=== PATIENT | male | born 1970 | race Two or more races ===

== ENCOUNTER 2023-07-21 13:47 | Outpatient (AMB) | payer MEDICAID, SELFPAY | END 2023-07-21 15:26 | disposition home or self-care (01) | LOC: HODAHC 13:47 | PROVIDERS: PCP Student in an Organized Health Care Education/Training Program; Referring Provider Student in an Organized Health Care Education/Training Program; Supervising Provider Internal Medicine; Visit Provider Student in an Organized Health Care Education/Training Program | DX: Z53.9 Procedure and treatment not carried out, unspecified reason (principal) ==

== ENCOUNTER → 2024-04-13 | Outpatient (CLI) | payer MEDICAID, SELFPAY ==
--- NOTE | 2024-04-13 07:30 | XR_ITS ---
Examination: MRI brain without intravenous contrast. Date and time of exam: April 13, 2024 0742 hours INDICATIONS: Diagnosis any plegia, altered mental status July 08, 2022, numbness in the right upper and lower extremity ringing in ears blurred vision dizziness episodes 3 years worse the last week Technique: Multiple axial and sagittal images of the brain obtained. Siemens high-resolution 1.5 Noemy short bore scanners utilized. Sagittal sections, T1-weighted, TR 500, TE 14, are performed. Axial sections proton-density and T2-weighted have been obtained. Inversion recovery axial images, TR 9, 260, TE 111, TI 2500. Diffusion weighted images, axial sections, TR 4800, TE 128, B value 1000 Axial sections, ADC map, TR 4800, TE 128 Findings: Enlargement of the sella turcica is not present. The optic chiasm and infundibular are not remarkable. Prepontine and interpeduncular cisterns are not enlarged. There is no localized enlargement of the medulla or chantell. Fourth ventricle and cerebellar tonsils appear normal in position. No subacute area of hemorrhage density is seen. Mass in the cerebellopontine angle region is not evident. Globes symmetrical. Orbital musculature including medial lateral rectus muscles do not exhibit abnormality. Diffusion-weighted images demonstrate no focus of restricted diffusion. Increased white matter signal evident, scattered punctate foci increased signal in the white matter Mass effect upon the ventricular system is not identified. Impression: Scattered punctate foci increased signal in the white matter, demyelinating disease pattern
== END | disposition home or self-care (01) ==
LOC: SMRI 07:28
PROVIDERS: Referring Provider Student in an Organized Health Care Education/Training Program; Visit Provider Student in an Organized Health Care Education/Training Program
DX: R90.82 White matter disease, unspecified (principal)
CPT/HCPCS: 70551

== ENCOUNTER 2024-04-15 10:01 | Outpatient (AMB) | payer MEDICAID, SELFPAY ==
--- NOTE | 2024-04-15 10:14 | PD.RESCLINIC ---
Vital Signs 04/15/24 10:15 Height 1.73 m Height Method Stated Weight 100.754 kg Weight Measurement Method Standing Scale BMI 33.6 BP 116/73 Blood Pressure Source Automatic Cuff Blood Pressure Location Left Upper Arm Position Sitting Respiration 18 Pulse 70 Pulse Source Monitor Temp 98.2 F Temp Source Oral Pulse Oximetry (%) 96 Oxygen Delivery Method Room Air Allergies/Meds Allergies & Medications Allergies No Known Allergies Allergy (Verified 04/15/24 10:18) Medication Reconciliation carbidopa 25 mg-levodopa 100 mg tablet 1 tab PO TID 30 days #90 tabs 08/18/23 [Rx Confirmed 04/15/24] furosemide 20 mg tablet (Lasix) 20 mg PO QDAY 30 days #30 tabs 12/01/23 [Rx Confirmed 04/15/24] propranolol 10 mg tablet 10 mg PO BID 30 days #60 tabs 12/01/23 [Rx Confirmed 04/15/24] spironolactone 25 mg tablet 25 mg PO QDAY #30 tabs 01/29/24 [Rx Confirmed 04/15/24] lactulose 10 gram/15 mL oral solution 20 ml PO TID #946 mL 03/04/24 [Rx Confirmed 04/15/24] rifaximin 550 mg tablet 550 mg PO BID 30 days #60 tabs 03/04/24 [Rx Confirmed 04/15/24] pantoprazole 40 mg tablet,delayed release 40 mg PO QDAY #30 tabs 04/15/24 [Rx] sertraline 50 mg tablet 50 mg PO QDAY #30 tabs 04/15/24 [Rx] MA Intake Visit Data Collection New Patient or Established: Established Patient (seen at [facility] within 3 years) Seen by Clinical Staff ONLY (RN/MA): No Pain Present Currently: No Pain scale:: 0 Pain Scale Used: Claudio-Lafleur/Numerical Community Outreach Director Required: No PCP or OBGYN visit in last 3 months: Yes Do You Feel Safe at Home: Yes Authorities Contacted: N/A Smoking Status Smoking Status: Never smoker Immunization / Flu Flu Vaccine in the Last 12 Months: No Flu Vaccine Exclusion Criteria: Refused by Patient Past Medical History Past Medical History NEUROLOGIC: Positive Parkinson's Disease CARDIAC: Positive Hypercholesterolemia; Negative Cardiac Disorders or Congestive Heart Failure RESPIRATORY: Negative Chronic Obstructive Pulmonary Disease (COPD) or Asthma GASTROINTESTINAL: Positive Cirrhosis GENITOURINARY: Negative Renal Disease ENDOCRINE: Negative Diabetes Mellitus Type 1 or Diabetes Mellitus Type 2 HEMATOLOGIC: Positive Blood Disorders; Negative Sickle Cell Disease PSYCHO/SOCIAL: Positive Depression Social History SMOKING STATUS: Smoking status: Never smoker ALCOHOL: Alcohol Intake: Never LIVES WITH: Lives With: Family Travel Risk Travel Hx Recent Travel: No Patient Portal Questionaires PHQ-9 PHQ-2 Over the last 2 weeks, how often have you been bothered by any of the following problems? 1. Little interest or pleasure in doing things: several days PHQ-9 8. Moving or speaking so slowly that other people could have noticed? - Or the opposite - being so fidgety or restless that you have been moving around a lot more than usual: not at all Source: Developed by Drs. Cal Wilhelm, Miguelina Steven, Eh Sheldon and colleagues, with an educational chrissy from [employer]. Social History Tobacco History Smoking Status: Never smoker Alcohol History Alcohol Intake: Never Domestic Abuse History Do You Feel Safe at Home: Yes Review of Systems Report any current symptoms Only answer those that you have currently: Past Medical History Past Medical History Have you ever been diagnosed with any of the following: Neurological Problems Parkinson's Disease: Yes Cardiology Problems Hypercholesterolemia: Yes Congestive Heart Failure: No Respiratory Problems Chronic Obstructive Pulmonary Disease (COPD): No Asthma: No Stomache/Intestinal Problems Cirrhosis: Yes Genital/Urinary Problems Renal Disease: No Endocrine Problems Diabetes Mellitus Type 1: No Diabetes Mellitus Type 2: No Blood Problems Sickle Cell Disease: No Psychologic Problems Depression: Yes History of Present Illness HPI Narrative Mr. 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 04/15/2024 patient was seen in the clinic for follow-up appointment following upper respiratory tract symptoms, COVID-19 and influenza testing was ordered which was negative. Also discussed imaging results for MRI brain, which is negative for ischemic stroke but shows nonspecific findings of demyelination. Recommended follow-up with neurologist, patient already follows with Dr. Gaona neurologist for Parkinson's disease. Also had extensive discussion with patient and his as hw follows multiple different care providers across different specialties and locations and is confused about treatment plan. Patient was pending colonoscopy and upper GI endoscopy at [facility], [place] by Dr. Keyes, which was rescheduled pending insurance authorization problems. Patient follows central office mechanic at [facility] in [place], Dr. Guillen. Patient was previously referred for liver transplant at [facility] by the central office mechanic, but was probably taken off the list as liver function improved. Liver transplant process now reinitiated by paper cutter operator at [place], who recommended the patient to contact [facility] for liver transplant. Patient's called to [facility] for appointment, they are requesting medical records., We will reach out to [facility] Dr. Guillen and [facility], Dr. Keyes for medical records. The patient is also pending urologist evaluation for kidney stones, pending appointment in May at [place]., Patient does not know the name of urologist. Recommended follow-up with neurologist Dr. Gaona for Parkinson disease as well as nonspecific MRI findings. Patient had a sleep study done AHI score 12.2, ordered CPAP therapy, order sent to [facility]. The patient's management plan was discussed with my attending physician MD Monalisa Payne MD, PGY2 Review of Systems Review of Systems Systems Reviewed: All systems reviewed, normal except as documented Narrative Review of Systems: Review of symptoms positive for narcolepsy, excessive sleepiness during the day and even while conversation. Also positive for depressive symptoms, also reported constipation. Objective/Exam Narrative Physical exam: Gen: Well-developed and well-nourished. HEENT: NCAT, PERRLA, EOMI, MMM, anicteric conjunctivae. Pharynx is mildly erythematose with no pus or swelling, tonsils appear equal and with no exudates. CVS: normal S1 and S2. RRR. No M/R/G. Resp: CTA B/L. No rhonchi, rales, crackles or wheezing. Abd: soft, non-tender, non-distended. BS+ in all 4 quadrants. MSK: Good ROM in BUE & BLE. No edema or rash. Neuro: CN II-XII grossly intact. Strength 4+/5 in RUE,. Alert and oriented x3. Psych: appropriate mood and affect. Assessment & Plan Diagnosis / Problem List (1) End stage liver disease: Status: Acute Assessment & Plan: Followed by central office mechanic at [facility], not currently a candidate for liver transplants Reported that he was found to have dilated esophageal varices during EGD done in [facility] Requested erp implementation consultant referral Plan: Continue taking lactulose/rifaximin, Started on propranolol 10mg BID, lasix 20mg daily and aldosterone 50mg daily. Advised to hold these medicines for a couple of days if develops lighthededness or low BP. F/u with [facility] Hepatology (2) Breast tenderness in male: Assessment & Plan: chief complaint of pain and tenderness bilateral nipple but more on the right side, making even wearing a shirt a painful experience. noted adequate chest hair, no swelling bilateral breast tissue no subaereolar breast pad, possible early gynaecomastia, likely secondary to spirolactone. On f/u visit 1 week later, the nipple tenderness is completely resolved after holding spironolactone. Plan: - Recommend restarting Spironolactone at lower dose 25mg qday, and uptitrate if no symptoms. - If symptoms recur, we will switch to amiloride (3) Parkinsons disease: Status: Acute Qualifiers: Dyskinesia presence: unspecified whether dyskinesia Fluctuating manifestations: unspecified whether manifestations fluctuate Qualified Code(s): G20.A1 - Parkinson's disease without dyskinesia, without mention of fluctuations Assessment & Plan: Stable Plan: Continue carbidopa-levodopa F/u with Neuro Dr Gaona (4) Depression: Status: Acute Qualifiers: Depression Type: unspecified Qualified Code(s): F32.A - Depression, unspecified Assessment & Plan: Sx currently under control with sertraline, SIGECAPS negative Plan: Continue sertraline (5) Hypertension: Status: Acute Qualifiers: Hypertension type: unspecified Qualified Code(s): I10 - Essential (primary) hypertension Assessment & Plan: Currently BP stabel without medications Plan: Counseled on limiting salt & red meat/pork intake Suggested substituting table salt with potassium chloride No-salt alternative On lasix, propranolol and aldactone for ESLD (6) Snoring: Status: Acute Assessment & Plan: Patient reports snoring at night & occasional feeling of dyspnea November 2022 Echo was unremarkable with LVEF 60-65%, lung sounds CTA B/L, trace edema, low suspicion for CHF at this time Plan: Pending insurance auth for sleep study for possible ?JESUS (7) Hepatic encephalopathy: Status: Resolved Assessment & Plan: History of hepatic encephalopathy Plan: Continue with rifaximin and lactulose, medication refilled. (8) Hemiparesis: Status: Acute Assessment & Plan: Patient states he has had right sided hemiparesis since he was hospitalized in June of 2023. At that time a head CT was negative for acute hemorrhage, mass effect or midline shift. Patient did not have an MRI at that time. Patient on today's visit with notable weakness 3/5 in RUE and RLE when compared to Left side which is 5/5. Plan: -MRI reviewed, nonspecific findings of demyelination. Follow-up with neurology. Orders: Orders Thyroid Stimulating Hormone 04/15/24 CBC 04/15/24 Liver Panel 04/15/24 K74.60 - Unspecified cirrhosis of liver Free T4 (Free Thyroxine) 04/15/24 Prothrombin Time with INR 04/15/24 K74.60 - Unspecified cirrhosis of liver Additional Assessment Internal Medicine Attending Note: Case discussed with and agree with note and management plan of Resident Physician as per Resident's Note above. Issues of concern for present visit are as follows: Follow-up visit. Prior workup for URI symptoms including COVID-19 and influenza testing was negative. MRI of the brain reviewed, shows nonspecific demyelination. Needs follow-up with neurology. Review of care providers for end-stage liver disease done. We will try to get records from all providers. He is to see urology in May. Sleep study was performed which showed apnea-hypopnea index of 12.2. We have ordered CPAP. Valdemar Alcantara MD Physician Billing Established Patient Established Patient: E/M Level 3-CPT 54275 Office Procedures [facility] Level of Care Nursing/Assessment Patient Status: Established Patient Nursing Assessment/Reassessment: Medication Reconciliation, Update PMH in EMR and Vital Signs Coordination of Care: Complex Care and Chronic Disease 1-5, Consent,records obtained, informed consent, Education Simp Pt/Fam, Results/Orders obtained and Staff clarify orders Established Patient Charge Established Patient Point Assignment: 90 Established Patient Point Charge: Level 3 (80-115)
[2024-04-15 10:15] VITALS: BP 116/73; PULSE 70; RESP 18; TEMP 36.8; O2SAT 96; BMI 33.6
== END 2024-04-15 11:33 | disposition home or self-care (01) ==
LOC: HODAHC 10:01
PROVIDERS: PCP Student in an Organized Health Care Education/Training Program; Referring Provider Student in an Organized Health Care Education/Training Program; Supervising Provider Internal Medicine; Visit Provider Student in an Organized Health Care Education/Training Program
DX: K74.60 Unspecified cirrhosis of liver (principal); G20.A1 Parkinson's disease without dyskinesia, without mention of fluctuations; F32.A Depression, unspecified; I10 Essential (primary) hypertension; R06.83 Snoring
CPT/HCPCS: 99213; G0463

== ENCOUNTER 2024-07-08 09:55 | Outpatient (AMB) | payer MEDICAID, SELFPAY ==
--- NOTE | 2024-07-08 10:12 | ACNOTE_ITS ---
Vital Signs 07/08/24 10:13 Height 1.73 m Height Method Stated Weight 102.285 kg Weight Measurement Method Standing Scale BMI 34.2 BP 132/69 H Blood Pressure Source Automatic Cuff Blood Pressure Location Left Upper Arm Position Sitting Respiration 17 Pulse 74 Pulse Source Monitor Temp 98.5 F Temp Source Temporal Artery Scan Pulse Oximetry (%) 98 Oxygen Delivery Method Room Air Allergies/Meds Allergies & Medications Allergies No Known Allergies Allergy (Verified 07/08/24 10:14) Medication Reconciliation carbidopa 25 mg-levodopa 100 mg tablet 1 tab PO TID 30 days #90 tabs 08/18/23 [R x Confirmed 04/15/24] furosemide 20 mg tablet (Lasix) 20 mg PO QDAY 30 days #30 tabs 06/24/24 [Rx] lactulose 10 gram/15 mL oral solution 20 ml PO TID #946 mL 06/24/24 [Rx] pantoprazole 40 mg tablet,delayed release 40 mg PO QDAY #30 tabs 06/24/24 [Rx] propranolol 10 mg tablet 10 mg PO BID 30 days #60 tabs 06/24/24 [Rx] rifaximin 550 mg tablet 550 mg PO BID 30 days #60 tabs 06/24/24 [Rx] sertraline 50 mg tablet 50 mg PO QDAY #30 tabs 06/24/24 [Rx] spironolactone 25 mg tablet 25 mg PO QDAY #30 tabs 06/24/24 [Rx] levothyroxine 50 mcg capsule 50 mcg PO QDAY #30 caps 07/08/24 [Rx Confirmed 07/08/24] MA Intake Visit Data Collection New Patient or Established: Established Patient (seen at [facility] within 3 years) Seen by Clinical Staff ONLY (RN/DAVIDE): No Pain Present Currently: No Pain scale:: 0 Pain Scale Used: Claudio-Lafleur/Numerical Irrigator Sprinkling System Required: No PCP or OBGYN visit in last 3 months: Yes Hx Now: No Do You Feel Safe at Home: Yes Authorities Contacted: N/A Smoking Status Smoking Status: Never smoker Immunization / Flu Flu Vaccine in the Last 12 Months: No Flu Vaccine Exclusion Criteria: No Exclusion Criteria Past Medical History Past Medical History NEUROLOGIC: Positive Parkinson's Disease CARDIAC: Positive Hypercholesterolemia; Negative Cardiac Disorders or Congestive Heart Failure RESPIRATORY: Negative Chronic Obstructive Pulmonary Disease (COPD) or Asthma GASTROINTESTINAL: Positive Cirrhosis GENITOURINARY: Negative Renal Disease ENDOCRINE: Negative Diabetes Mellitus Type 1 or Diabetes Mellitus Type 2 HEMATOLOGIC: Positive Blood Disorders; Negative Sickle Cell Disease PSYCHO/SOCIAL: Positive Depression Social History SMOKING STATUS: Smoking status: Never smoker ALCOHOL: Alcohol Intake: Never LIVES WITH: Lives With: Family Patient Portal Questionaires PHQ-9 PHQ-2 Over the last 2 weeks, how often have you been bothered by any of the following problems? 1. Little interest or pleasure in doing things: several days PHQ-9 8. Moving or speaking so slowly that other people could have noticed? - Or the opposite - being so fidgety or restless that you have been moving around a lot more than usual: not at all Source: Developed by Drs. Cal Wilhelm, Miguelina Steven, Eh Sheldon and colleagues, with an educational chrissy from [employer] Social History Tobacco History Smoking Status: Never smoker Alcohol History Alcohol Intake: Never Domestic Abuse History Do You Feel Safe at Home: Yes Review of Systems Report any current symptoms Only answer those that you have currently: Past Medical History Past Medical History Have you ever been diagnosed with any of the following: Neurological Problems Parkinson's Disease: Yes Cardiology Problems Hypercholesterolemia: Yes Congestive Heart Failure: No Respiratory Problems Chronic Obstructive Pulmonary Disease (COPD): No Asthma: No Stomache/Intestinal Problems Cirrhosis: Yes Genital/Urinary Problems Renal Disease: No Endocrine Problems Diabetes Mellitus Type 1: No Diabetes Mellitus Type 2: No Blood Problems Sickle Cell Disease: No Psychologic Problems Depression: Yes History of Present Illness HPI Narrative Mr. 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 04/15/2024 patient was seen in the clinic for follow-up appointment following upper respiratory tract symptoms, COVID-19 and influenza testing was ordered which was negative. Also discussed imaging results for MRI brain, which is negative for ischemic stroke but shows nonspecific findings of demyelination. Recommended follow-up with neurologist, patient already follows with Dr. Gaona neurologist for Parkinson's disease. Also had extensive discussion with patient and his as hw follows multiple different care providers across different specialties and locations and is confused about treatment plan. Patient was pending colonoscopy and upper GI endoscopy at [facility], [place] by Dr. Keyes, which was rescheduled pending insurance authorization problems. Patient follows racebook writer at [facility] in [place], Dr. Guillen. Patient was previously referred for liver transplant at [facility] by the racebook writer, but was probably taken off the list as liver function improved. Liver transplant process now reinitiated by electronic news gathering camera person at [place], who recommended the patient to contact [facility] for liver transplant. Patient's called to [facility] for appointment, they are requesting medical records., We will reach out to [facility] Dr. Guillen and [place] [facility], Dr. Keyes for medical records. The patient is also pending urologist evaluation for kidney stones, pending appointment in May at [place]., Patient does not know the name of urologist. Recommended follow-up with neurologist Dr. Gaona for Parkinson disease as well as nonspecific MRI findings. Patient had a sleep study done AHI score 12.2, ordered CPAP therapy, order sent to [facility]. 07/08/2024 pt is seen on f/u with labs , he had followed up with GI and got endoscopy done, per pt no bands were placed, will get medical records, also noted elevated AFP levels, was also told by GI about portal vein thrombosis , pt reported he had CT abdomen ordered by GI and will followup in one month to d biancauss results, labs show noted mild hypothyroidism, but consistent clinical symptoms of decreased energy levels, depressed affect, constipation, will start on low dose levothyroxine and reevaluate response to treatment at later followup appointments, Pt also desired to know the indication for all his medications, and all prescribed medications were explained. Questions and concerns were answered. The patient's management plan was discussed with my attending physician MD Monalisa Payne MD, PGY2 Review of Systems Review of Systems Systems Reviewed: All systems reviewed, normal except as documented Objective/Exam Narrative Physical exam: Gen: Well-developed and well-nourished. Normal male pattern hair distribution HEENT: NCAT, PERRLA, EOMI, MMM, anicteric conjunctivae. CVS: normal S1 and S2. RRR. No M/R/G. Resp: CTA B/L. No rhonchi, rales, crackles or wheezing. Abd: soft, non-tender, non-distended. BS+ in all 4 quadrants. MSK: Good ROM in BUE & BLE. No edema or rash. Neuro: CN II-XII grossly intact. Strength 4+/5 in RUE,. Alert and oriented x3. noted mild tremors in right UE. Psych: appropriate mood and affect. Assessment & Plan Diagnosis / Problem List (1) Portal vein thrombosis: Status: Acute Assessment & Plan: he had followed up with GI and got endoscopy done, per pt no bands were placed, will get medical records, also noted elevated AFP levels, was also told by GI about portal vein thrombosis , pt reported he had CT abdomen ordered by GI and will followup in one month to discuss results, chart review shows, there was concern for portal vein thrombosis in CT abdomen in 2021, Liver ultrasound in 2021 showed patent portal vein and IVC, a repeat Liver ultrasound in 2022 was a limited study and portal vein not visualized, noted elevated AFP but no liver masses identified on prior imaging. Plan: - Will defer anticoagulation to GI given hx of cirrhosis and concern for bleeding. - requesting medical records from GI office, per patient followup appointment to discuss results of CT abdomen is in one month. (2) Hypothyroid: Status: Acute Assessment & Plan: labs show noted mild hypothyroidism, but consistent clinical symptoms of decreased energy levels, depressed affect, constipation, will start on low dose levothyroxine and reevaluate response to treatment at later followup appointments. Plan: - Levothyroxine 50 mcg ACBR (3) End stage liver disease: Status: Acute Assessment & Plan: Followed by racebook writer at [facility], not currently a candidate for liver transplants Reported that he was found to have dilated esophageal varices during EGD done in [facility] Requested freight checker referral Plan: Continue taking lactulose/rifaximin, Started on propranolol 10mg BID, lasix 20mg daily and aldosterone 50mg daily. Advised to hold these medicines for a couple of days if develops lighthededness or low BP. F/u with [facility] Hepatology (4) Parkinsons disease: Status: Acute Qualifiers: Dyskinesia presence: unspecified whether dyskinesia Fluctuating manifestations: unspecified whether manifestations fluctuate Qualified Code(s): G20.A1 - Parkinson's disease without dyskinesia, without mention of fluctuations Assessment & Plan: Stable Plan: Continue carbidopa-levodopa F/u with Neuro Dr Gaona (5) Depression: Status: Acute Qualifiers: Depression Type: unspecified Qualified Code(s): F32.A - Depression, unspecified Assessment & Plan: Sx currently under control with sertraline, SIGECAPS negative Plan: Continue sertraline (6) Hypertension: Status: Acute Qualifiers: Hypertension type: unspecified Qualified Code(s): I10 - Essential (primary) hypertension Assessment & Plan: Blood pressure stable. On Lasix, propranolol, and spironolactone for end-stage liver disease, these are keeping blood pressure controlled. Plan: Counseled on limiting salt & red meat/pork intake Suggested substituting table salt with potassium chloride No-salt alternative On lasix, propranolol and aldactone for ESLD (7) Breast tenderness in male: Assessment & Plan: chief complaint of pain and tenderness bilateral nipple but more on the right side, making even wearing a shirt a painful experience. noted adequate chest hair, no swelling bilateral breast tissue no subaereolar breast pad, possible early gynaecomastia, likely secondary to spirolactone. On f/u visit 1 week later, the nipple tenderness is completely resolved after holding spironolactone. Plan: Tolerating spironolactone at lower dose of 25 mg daily. Has not had recurrence of breast tenderness. (8) Snoring: Status: Acute Assessment & Plan: Patient reports snoring at night & occasional feeling of dyspnea November 2022 Echo was unremarkable with LVEF 60-65%, lung sounds CTA B/L, trace edema, low suspicion for CHF at this time Plan: Pending insurance auth for sleep study for possible ?JESUS (9) Hepatic encephalopathy: Status: Resolved Assessment & Plan: History of hepatic encephalopathy Plan: Continue with rifaximin and lactulose, medication refilled. (10) Hemiparesis: Status: Acute Assessment & Plan: Patient states he has had right sided hemiparesis since he was hospitalized in June of 2023. At that time a head CT was negative for acute hemorrhage, mass effect or midline shift. Patient did not have an MRI at that time. Patient on today's visit with notable weakness 3/5 in RUE and RLE when compared to Left side which is 5/5. Plan: -MRI reviewed, nonspecific findings of demyelination. Follow-up with neurology. Additional Assessment Internal Medicine Attending Note: Case discussed with and agree with note and management plan of Resident Physician as per Resident's Note above. Issues of concern for present visit are as follows: Follow-up visit. Continues to follow with gastroenterology. Had recent endoscopy. Did not need any banding. Patient with prior findings on CT scan in 2021 concerning for portal vein thrombosis. Liver ultrasound in 2021 showed a patent portal vein and IVC. Patient has apparently recently been informed that he has a portal vein thrombosis, he will be following up with gastroenterology. We will defer any decision on anticoagulation to gastroenterology given history of cirrhosis and concern for possible bleeding. We will try to get records from their office. Labs reviewed. TSH and free T4 consistent with mild hypothyroidism. We will start low-dose levothyroxine. Medication list reviewed with patient by resident physician. Tolerating Lasix and low-dose spironolactone, previously had issues with breast tenderness. Blood pressure 132/69 today in acceptable range. Other issues as noted. Valdemar Alcantara MD Physician Billing Established Patient Established Patient: E/M Level 3-CPT [id number] Office Procedures [facility] Level of Care Nursing/Assessment Patient Status: Established Patient Nursing Assessment/Reassessment: Medication Reconciliation, Update PMH in EMR and Vital Signs Coordination of Care: Complex Care and Chronic Disease 1-5, Consent,records obtained, informed consent, Education Simp Pt/Fam, Results/Orders obtained and Staff clarify orders Established Patient Charge Established Patient Point Assignment: 90 Established Patient Point Charge: EP Level 3 (80-115)
[2024-07-08 10:13] VITALS: BP 132/69; PULSE 74; RESP 17; TEMP 36.9; O2SAT 98; BMI 34.2
== END 2024-07-08 10:47 | disposition home or self-care (01) ==
LOC: HODAHC 09:55
PROVIDERS: PCP Student in an Organized Health Care Education/Training Program; Referring Provider Student in an Organized Health Care Education/Training Program; Supervising Provider Student in an Organized Health Care Education/Training Program; Visit Provider Student in an Organized Health Care Education/Training Program
DX: I81 Portal vein thrombosis (principal); E03.9 Hypothyroidism, unspecified; K72.10 Chronic hepatic failure without coma; I85.00 Esophageal varices without bleeding; G20.A1 Parkinson's disease without dyskinesia, without mention of fluctuations; F32.A Depression, unspecified; I10 Essential (primary) hypertension; N64.4 Mastodynia; R06.83 Snoring; K76.82 Hepatic encephalopathy; G81.91 Hemiplegia, unspecified affecting right dominant side
CPT/HCPCS: 99213; G0463

== ENCOUNTER 2025-01-16 10:06 | Outpatient (AMB) | payer MEDICARE, MEDICAID, SELFPAY ==
[2025-01-16 10:11] VITALS: BP 143/74; PULSE 61; RESP 19; TEMP 36.7; O2SAT 92; BMI 34.1
--- NOTE | 2025-01-16 10:11 | ACNOTE_ITS ---
Vital Signs 01/16/25 10:11 Height 1.73 m Height Method Stated Weight 102.058 kg Weight Measurement Method Standing Scale BMI 34.1 BP 143/74 H Blood Pressure Source Automatic Cuff Blood Pressure Location Right Upper Arm Position Sitting Respiration 19 Pulse 61 Pulse Source Monitor Temp 98.1 F Temp Source Temporal Artery Scan Pulse Oximetry (%) 92 L Oxygen Delivery Method Room Air Allergies/Meds Allergies & Medications Allergies No Known Allergies Allergy (Verified 07/08/24 10:14) MA Intake Visit Data Collection New Patient or Established: Established Patient (seen at [facility] within 3 years) Seen by Clinical Staff ONLY (RN/MA): No Reason for Visit:: FOLLOW UP Pain Present Currently: No Director Records Management Required: No PCP or OBGYN visit in last 3 months: Yes Date of Last PCP or OBGYN visit: 07/08/24 Do You Feel Safe at Home: Yes Authorities Contacted: N/A Smoking Status Smoking Status: Never smoker Immunization / Flu Flu Vaccine in the Last 12 Months: No Flu Vaccine Exclusion Criteria: No Exclusion Criteria Past Medical History Past Medical History NEUROLOGIC: Positive Parkinson's Disease CARDIAC: Positive Hypercholesterolemia; Negative Cardiac Disorders or Congestive Heart Failure RESPIRATORY: Negative Chronic Obstructive Pulmonary Disease (COPD) or Asthma GASTROINTESTINAL: Positive Cirrhosis GENITOURINARY: Negative Renal Disease ENDOCRINE: Negative Diabetes Mellitus Type 1 or Diabetes Mellitus Type 2 HEMATOLOGIC: Positive Blood Disorders; Negative Sickle Cell Disease PSYCHO/SOCIAL: Positive Depression Social History SMOKING STATUS: Smoking status: Never smoker ALCOHOL: Alcohol Intake: Never LIVES WITH: Lives With: Family Patient Portal Questionaires PHQ-9 PHQ-2 Over the last 2 weeks, how often have you been bothered by any of the following problems? 1. Little interest or pleasure in doing things: several days PHQ-9 8. Moving or speaking so slowly that other people could have noticed? - Or the opposite - being so fidgety or restless that you have been moving around a lot more than usual: not at all Source: Developed by Drs. Cal Wilhelm, Miguelina Steven, hE Sheldon and colleagues, with an educational chrissy from [employer]. Social History Tobacco History Smoking Status: Never smoker Alcohol History Alcohol Intake: Never Domestic Abuse History Do You Feel Safe at Home: Yes Review of Systems Report any current symptoms Only answer those that you have currently: Past Medical History Past Medical History Have you ever been diagnosed with any of the following: Neurological Problems Parkinson's Disease: Yes Cardiology Problems Hypercholesterolemia: Yes Congestive Heart Failure: No Respiratory Problems Chronic Obstructive Pulmonary Disease (COPD): No Asthma: No Stomache/Intestinal Problems Cirrhosis: Yes Genital/Urinary Problems Renal Disease: No Endocrine Problems Diabetes Mellitus Type 1: No Diabetes Mellitus Type 2: No Blood Problems Sickle Cell Disease: No Psychologic Problems Depression: Yes History of Present Illness HPI Narrative Mr. 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 04/15/2024 patient was seen in the clinic for follow-up appointment following upper respiratory tract symptoms, COVID-19 and influenza testing was ordered which was negative. Also discussed imaging results for MRI brain, which is negative for ischemic stroke but shows nonspecific findings of demyelination. Recommended follow-up with neurologist, patient already follows with Dr. Gaona neurologist for Parkinson's disease. Also had extensive discussion with patient and his as hw follows multiple different care providers across different specialties and locations and is confused about treatment plan. Patient was pending colonoscopy and upper GI endoscopy at [facility] by Dr. Keyes, which was rescheduled pending insurance authorization problems. Patient follows financial reporting advisor at [facility] in [place], Dr. Guillen. Patient was previously referred for liver transplant at [facility] by the financial reporting advisor, but was probably taken off the list as liver function improved. Liver transplant process now reinitiated by community engagement specialist at [facility], who recommended the patient to contact [facility] for liver transplant. Patient's called to [facility] for appointment, they are requesting medical records., We will reach out to [facility] Dr. Guillen and [facility], Dr. Keyes for medical records. The patient is also pending urologist evaluation for kidney stones, pending appointment in May at [place]., Patient does not know the name of urologist. Recommended follow-up with neurologist Dr. Gaona for Parkinson disease as well as nonspecific MRI findings. Patient had a sleep study done AHI score 12.2, ordered CPAP therapy, order sent to [facility]. 07/08/2024 pt is seen on f/u with labs , he had followed up with GI and got endoscopy done, per pt no bands were placed, will get medical records, also noted elevated AFP levels, was also told by GI about portal vein thrombosis , pt reported he had CT abdomen ordered by GI and will followup in one month to discuss results, labs show noted mild hypothyroidism, but consistent clinical symptoms of decreased energy levels, depressed affect, constipation, will start on low dose levothyroxine and reevaluate response to treatment at later followup appointments, Pt also desired to know the indication for all his medications, and all prescribed medications were explained. Questions and concerns were answered. 01/16/2025: Pt is seen for follow up and a chief complaint of dizzy spells, with brief loss of conciousness, but without any falls or injury to his head. The patient states that it started about 2 weeks ago and occurs about 2-3 days per week. Patient notes that eating something helps with these episodes. Patient states that he brewer s not been eating much the past few weeks. Systolic blood pressure during the past few days are in 130s-140s. These episodes do not seem to be tied to getting up too quickly from sitting per the patient. Patient reports that he has not been taking his medications except for his lactulose and rifaximin for the past few months. Advised patient to continue Lasix 20 mg daily, spironolactone 25 mg daily, and levothyroxine 50 mcg ACBR as he endorses swelling of his BLE, SOB when he climbs stairs at home, and increased fatigue. Patient continues to follow financial reporting advisor in [facility] and follows a neurologist at [facility]. The patient's management plan was discussed with my attending physician MD Crow Payne DO, PGY1 Review of Systems Review of Systems Systems Reviewed: All systems reviewed, normal except as documented Objective/Exam Narrative Physical exam: Physical Exam: General: Alert, no acute distress. Skin: Warm, dry, intact, no obvious rash. Head: Normocephalic, atraumatic. Eye: Normal conjunctiva, PERRL. Throat: Oral mucosa moist. No obvious lesions in oropharynx. Cardiovascular: Regular rate and rhythm, no murmur, +S1/S2. Respiratory: Lungs are clear to auscultation, respirations unlabored, no crackles, no wheezing. Gastrointestinal: Soft, nontender, non-distended. No guarding or rebound tenderness. Extremities: 1+ BLE edema to shins, no cyanosis, no clubbing. Neuro: No focal deficits observed. Conversant, moving all extremities. No overt cerebellar signs/incoordination. Psychiatric: Cooperative, appropriate affect. Assessment & Plan Diagnosis / Problem List (1) Portal vein thrombosis: Status: Acute Assessment & Plan: he had followed up with GI and got endoscopy done, per pt no bands were placed, will get medical records, also noted elevated AFP levels, was also told by GI about portal vein thrombosis , pt reported he had CT abdomen ordered by GI and will followup in one month to discuss results, chart review shows, there was concern for portal vein thrombosis in CT abdomen in 2021, Liver ultrasound in 2021 showed patent portal vein and IVC, a repeat Liver ultrasound in 2022 was a limited study and portal vein not visualized, noted elevated AFP but no liver masses identified on prior imaging. Plan: - Will defer anticoagulation to GI given hx of cirrhosis and concern for bleeding. - requesting medical records from GI office, per patient followup appointment to discuss results of CT abdomen is in one month. (2) Hypothyroid: Status: Acute Qualifiers: Hypothyroidism type: unspecified Qualified Code(s): E03.9 - Hypothyroidism, unspecified Assessment & Plan: labs show noted mild hypothyroidism, but consistent clinical symptoms of decreased energy levels, depressed affect, constipation, will start on low dose levothyroxine and reevaluate response to treatment at later followup appointments. Plan: - Levothyroxine 50 mcg ACBR - TSH and T4 ordered 01/16 (3) End stage liver disease: Status: Acute Assessment & Plan: Followed by financial reporting advisor at [facility], not currently a candidate for liver transplants Reported that he was found to have dilated esophageal varices during EGD done in [facility] Requested concrete pourer referral Plan: Continue taking lactulose/rifaximin, Started on propranolol 10mg BID, lasix 20mg daily and aldosterone 50mg daily. Advised to hold these medicines for a couple of days if develops lighthededness or low BP. F/u with [facility] Hepatology Educated patient on low fat diet and provided patient with handout on diet resources (4) Parkinsons disease: Status: Acute Qualifiers: Dyskinesia presence: unspecified whether dyskinesia Fluctuating manifestations: unspecified whether manifestations fluctuate Qualified Code(s): G20.A1 - Parkinson's disease without dyskinesia, without mention of fluctuations Assessment & Plan: Stable Plan: Continue carbidopa-levodopa F/u with Neuro Dr Gaona (5) Depression: Status: Acute Qualifiers: Depression Type: unspecified Qualified Code(s): F32.A - Depression, unspecified Assessment & Plan: Sx currently under control with sertraline, SIGECAPS negative Plan: Continue sertraline (6) Hypertension: Status: Acute Qualifiers: Hypertension type: unspecified Qualified Code(s): I10 - Essential (primary) hypertension Assessment & Plan: Blood pressure stable. On Lasix, propranolol, and spironolactone for end-stage liver disease, these are keeping blood pressure controlled. Plan: Counseled on limiting salt & red meat/pork intake Suggested substituting table salt with potassium chloride No-salt alternative On lasix, propranolol and aldactone for ESLD (7) Breast tenderness in male: Assessment & Plan: chief complaint of pain and tenderness bilateral nipple but more on the right side, making even wearing a shirt a painful experience. noted adequate chest hair, no swelling bilateral breast tissue no subaereolar breast pad, possible early gynaecomastia, likely secondary to spirolactone. On f/u visit 1 week later, the nipple tenderness is completely resolved after holding spironolactone. Plan: Tolerating spironolactone at lower dose of 25 mg daily. Has not had recurrence of breast tenderness. (8) Snoring: Status: Acute Assessment & Plan: Patient reports snoring at night & occasional feeling of dyspnea November 2022 Echo was unremarkable with LVEF 60-65%, lung sounds CTA B/L, trace edema, low suspicion for CHF at this time Plan: Pending insurance auth for sleep study for possible ?JESUS (9) Hepatic encephalopathy: Status: Resolved Assessment & Plan: History of hepatic encephalopathy Plan: Continue with rifaximin and lactulose, medication refilled. (10) Hemiparesis: Status: Acute Qualifiers: Hemiparesis etiology: unspecified Hemiparesis laterality: right dominant side Qualified Code(s): G81.91 - Hemiplegia, unspecified affecting right dominant side Assessment & Plan: Patient states he has had right sided hemiparesis since he was hospitalized in June of 2023. At that time a head CT was negative for acute hemorrhage, mass effect or midline shift. Patient did not have an MRI at that time. Patient on today's visit with notable weakness 3/5 in RUE and RLE when compared to Left side which is 5/5. Plan: -MRI reviewed, nonspecific findings of demyelination. Follow-up with neurology. (11) Syncope and collapse: Status: Acute Assessment & Plan: Patient noted episodes of dizziness followed by brief loss of conciousness that started about 2 weeks from 01/16/25. Episodes occur 2-3 times per week. Symptoms improve with food intake. Could be potentially related to hypoglycemia. Plan: - Ordered CBC and CMP - Ordered hemoglobin A1c - Ordered iron panel - Ordered lipid panel Plan Patient plan of care was discussed with attending physician Dr. Qiunton Alexandre, PGY1 Orders: Orders Comprehensive Metabolic Panel Today Thyroglobulin Panel* Today Ferritin Today CBC Today Lipid Panel Today Iron Panel Today Ambulatory Hemoglobin A1C Today Office Procedures [facility] Level of Care Nursing/Assessment Patient Status: Established Patient Nursing Assessment/Reassessment: Medication Reconciliation, Update PMH in EMR and Vital Signs Coordination of Care: Complex Care and Chronic Disease 1-5, Consent,records obtained, informed consent, Lab and Imaging orders and Results/Orders obtained Established Patient Charge Established Patient Point Assignment: 80 Established Patient Point Charge: Level 3 (80-115)
== END 2025-01-16 11:00 | disposition home or self-care (01) ==
LOC: HODAHC 10:06
PROVIDERS: PCP Student in an Organized Health Care Education/Training Program; Referring Provider Student in an Organized Health Care Education/Training Program
DX: R42 Dizziness and giddiness (principal); R55 Syncope and collapse; N64.4 Mastodynia; R06.83 Snoring; I81 Portal vein thrombosis; K76.82 Hepatic encephalopathy; G81.91 Hemiplegia, unspecified affecting right dominant side; Z91.148 Patient's other noncompliance with medication regimen for other reason; Z79.890 Hormone replacement therapy; R53.83 Other fatigue
CPT/HCPCS: 99213; G0463

== ENCOUNTER 2025-01-31 09:21 | Outpatient (AMB) | payer MEDICARE, MEDICAID, SELFPAY ==
[2025-01-31 09:50] VITALS: BP 127/79; PULSE 67; RESP 17; TEMP 36.8; O2SAT 95; BMI 33.6
--- NOTE | 2025-01-31 09:50 | PD.RESCLINIC ---
Vital Signs 01/31/25 09:50 Height 1.73 m Height Method Stated Weight 100.754 kg Weight Measurement Method Standing Scale BMI 33.6 BP 127/79 Blood Pressure Source Automatic Cuff Blood Pressure Location Right Upper Arm Position Sitting Respiration 17 Pulse 67 Pulse Source Monitor Temp 98.2 F Temp Source Oral Pulse Oximetry (%) 95 Oxygen Delivery Method Room Air Allergies/Meds Allergies & Medications Allergies No Known Allergies Allergy (Verified 01/31/25 09:50) Medication Reconciliation carbidopa 25 mg-levodopa 100 mg tablet 1 tab PO TID 30 days #90 tabs 08/18/23 [Rx Confirmed 01/31/25] furosemide 20 mg tablet (Lasix) 20 mg PO QDAY 30 days #30 tabs 06/24/24 [Rx Confirmed 01/31/25] lactulose 10 gram/15 mL oral solution 20 ml PO TID #946 mL 06/24/24 [Rx Confirmed 01/31/25] pantoprazole 40 mg tablet,delayed release 40 mg PO QDAY #30 tabs 06/24/24 [Rx Confirmed 01/31/25] propranolol 10 mg tablet 10 mg PO BID 30 days #60 tabs 06/24/24 [Rx Confirmed 01/31/25] rifaximin 550 mg tablet 550 mg PO BID 30 days #60 tabs 06/24/24 [Rx Confirmed 01/31/25] sertraline 50 mg tablet 50 mg PO QDAY #30 tabs 06/24/24 [Rx Confirmed 01/31/25] spironolactone 25 mg tablet 25 mg PO QDAY #30 tabs 06/24/24 [Rx Confirmed 01/31/25] levothyroxine 50 mcg capsule 50 mcg PO QDAY #30 caps 07/08/24 [Rx Confirmed 01/31/25] MA Intake Visit Data Collection New Patient or Established: Established Patient (seen at [facility] within 3 years) Seen by Clinical Staff ONLY (RN/MA): No Pain Present Currently: No Pain scale:: 0 PCP or OBGYN visit in last 3 months: Yes Smoking Status Smoking Status: Never smoker Immunization / Flu Flu Vaccine in the Last 12 Months: No Flu Vaccine Exclusion Criteria: No Exclusion Criteria Past Medical History Past Medical History NEUROLOGIC: Positive Parkinson's Disease CARDIAC: Positive Hypercholesterolemia; Negative Cardiac Disorders or Congestive Heart Failure RESPIRATORY: Negative Chronic Obstructive Pulmonary Disease (COPD) or Asthma GASTROINTESTINAL: Positive Cirrhosis GENITOURINARY: Negative Renal Disease ENDOCRINE: Negative Diabetes Mellitus Type 1 or Diabetes Mellitus Type 2 HEMATOLOGIC: Positive Blood Disorders; Negative Sickle Cell Disease PSYCHO/SOCIAL: Positive Depression Social History SMOKING STATUS: Smoking status: Never smoker ALCOHOL: Alcohol Intake: Never LIVES WITH: Lives With: Family Patient Portal Questionaires PHQ-9 PHQ-2 Over the last 2 weeks, how often have you been bothered by any of the following problems? 1. Little interest or pleasure in doing things: several days PHQ-9 8. Moving or speaking so slowly that other people could have noticed? - Or the opposite - being so fidgety or restless that you have been moving around a lot more than usual: not at all Source: Developed by Drs. Cal Wilhelm, Miguelina Steven, Eh Sheldon and colleagues, with an educational chrissy from [employer]. Social History Tobacco History Smoking Status: Never smoker Alcohol History Alcohol Intake: Never Review of Systems Report any current symptoms Only answer those that you have currently: Past Medical History Past Medical History Have you ever been diagnosed with any of the following: Neurological Problems Parkinson's Disease: Yes Cardiology Problems Hypercholesterolemia: Yes Congestive Heart Failure: No Respiratory Problems Chronic Obstructive Pulmonary Disease (COPD): No Asthma: No Stomache/Intestinal Problems Cirrhosis: Yes Genital/Urinary Problems Renal Disease: No Endocrine Problems Diabetes Mellitus Type 1: No Diabetes Mellitus Type 2: No Blood Problems Sickle Cell Disease: No Psychologic Problems Depression: Yes History of Present Illness HPI Narrative Mr. 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 04/15/2024 patient was seen in the clinic for follow-up appointment following upper respiratory tract symptoms, COVID-19 and influenza testing was ordered which was negative. Also discussed imaging results for MRI brain, which is negative for ischemic stroke but shows nonspecific findings of demyelination. Recommended follow-up with neurologist, patient already follows with Dr. Gaona neurologist for Parkinson's disease. Also had extensive discussion with patient and his as hw follows multiple different care providers across different specialties and locations and is confused about treatment plan. Patient was pending colonoscopy and [facility] by Dr[facility] Keyes, which was rescheduled pending insurance authorization problems. Patient follows senior chemist at [facility] in [place], Dr. Guillen. Patient was previously referred for liver transplant at [facility] by the senior chemist, but was probably taken off the list as liver function improved. Liver transplant process now reinitiated by wood buffer at [place], who recommended the patient to contact [facility] for liver transplant. Patient's called to [facility] for appointment, they are requesting medical records., We will reach out to [facility] Dr. Guillen and [facility], Dr. Keyes for medical records. The patient is also pending urologist evaluation for kidney stones, pending appointment in May at [place]., Patient does not know the name of urologist. Recommended follow-up with neurologist Dr. Gaona for Parkinson disease as well as nonspecific MRI findings. Patient had a sleep study done AHI score 12.2, ordered CPAP therapy, order sent to [facility]. 07/08/2024 pt is seen on f/u with labs , he had followed up with GI and got endoscopy done, per pt no bands were placed, will get medical records, also noted elevated AFP levels, was also told by GI about portal vein thrombosis , pt reported he had CT abdomen ordered by GI and will followup in one month to discuss results, labs show noted mild hypothyroidism, but consistent clinical symptoms of decreased energy levels, depressed affect, constipation, will start on low dose levothyroxine and reevaluate response to treatment at later followup appointments, Pt also desired to know the indication for all his medications, and all prescribed medications were explained. Questions and concerns were answered. 01/16/2025: Pt is seen for follow up and a chief complaint of dizzy spells, with brief loss of conciousness, but without any falls or injury to his head. The patient states that it started about 2 weeks ago and occurs about 2-3 days per week. Patient notes that eating something helps with these episodes. Patient states that he has not been eating much the past few weeks. Systolic blood pressure during the past few days are in 130s-140s. These episodes do not seem to be tied to getting up too quickly from sitting per the patient. Patient reports that he has not been taking his medications except for his lactulose and rifaximin for the past few months. Advised patient to continue Lasix 20 mg daily, spironolactone 25 mg daily, and levothyroxine 50 mcg ACBR as he endorses swelling of his BLE, SOB when he climbs stairs at home, and increased fatigue. Patient continues to follow senior chemist in [facility] and follows a neurologist at [facility]. 01/31/2025: Came to the clinic in view of dizziness. Denies palpitation, syncopal episodes. Reported that dizziness is worsened especially when bending down. Patient had history of Parkinson's which noted to be worsening in the recent time and also noted to have a memory issues. Following up with a neurologist in [place] and pending scan for the brain, not sure of the name. Orthostatic vitals are taken in the clinic and noted to be normal. Will do a carotid Doppler but most likely the symptoms are likely due to the worsening Parkinson's disease and recommended to follow-up with neurologist. Also follows up with senior chemist in [place] pending appointment in coming 1 to 2 months. Labs reviewed. Review of Systems Review of Systems Systems Reviewed: All systems reviewed, normal except as documented Objective/Exam Narrative Physical exam: General: Awake. HEENT: Normocephalic, atraumatic, mucous membranes moist. Heart: Regular rate and rhythm, no murmurs. Lungs: Clear to auscultation with no wheezing or crackles. Abdomen: Soft, nondistended, nontender, positive bowel sounds. ?No guarding or rebound tenderness. Neurologic: Alert and oriented x3, no gross neurological deficit, and patient able to move all 4 extremities. Extremities: No edema. Skin: No rash or ecchymoses. Assessment & Plan Diagnosis / Problem List (1) Dizziness, nonspecific: Status: Acute Assessment & Plan: Came to the clinic in view of dizziness. Denies palpitation, syncopal episodes. Reported that dizziness is worsened especially when bending down. Patient had history of Parkinson's which noted to be worsening in the recent time and also noted to have a memory issues. Following up with a neurologist in [place] and pending scan for the brain, not sure of the name. Orthostatic vitals are taken in the clinic and noted to be normal. Will do a carotid Doppler but most likely the symptoms are likely due to the worsening Parkinson's disease and recommended to follow-up with neurologist. Plan: Orthostatic vitals are taken in the clinic and noted to be normal. Will do a carotid Doppler but most likely the symptoms are likely due to the worsening Parkinson's disease and recommended to follow-up with neurologist. (2) Portal vein thrombosis: Status: Acute Assessment & Plan: he had followed up with GI and got endoscopy done, per pt no bands were placed, will get medical records, also noted elevated AFP levels, was also told by GI about portal vein thrombosis , pt reported he had CT abdomen ordered by GI and will followup in one month to discuss results, chart review shows, there was concern for portal vein thrombosis in CT abdomen in 2021, Liver ultrasound in 2021 showed patent portal vein and IVC, a repeat Liver ultrasound in 2022 was a limited study and portal vein not visualized, noted elevated AFP but no liver masses identified on prior imaging. Plan: - Will defer anticoagulation to GI given hx of cirrhosis and concern for bleeding. - requesting medical records from GI office, per patient followup appointment to discuss results of CT abdomen is in one month. (3) Hypothyroid: Status: Acute Qualifiers: Hypothyroidism type: unspecified Qualified Code(s): E03.9 - Hypothyroidism, unspecified Assessment & Plan: labs show noted mild hypothyroidism, but consistent clinical symptoms of decreased energy levels, depressed affect, constipation, will start on low dose levothyroxine and reevaluate response to treatment at later followup appointments. Plan: - Levothyroxine 50 mcg ACBR - TSH and T4 ordered 01/16 (4) End stage liver disease: Status: Acute Assessment & Plan: Followed by senior chemist at [facility], not currently a candidate for liver transplants Reported that he was found to have dilated esophageal varices during EGD done in [facility] Requested chief client officer referral Plan: Continue taking lactulose/rifaximin, Started on propranolol 10mg BID, lasix 20mg daily and aldosterone 50mg daily. Advised to hold these medicines for a couple of days if develops lighthededness or low BP. F/u with [facility] Hepatology Educated patient on low fat diet and provided patient with handout on diet resources (5) Parkinsons disease: Status: Acute Qualifiers: Dyskinesia presence: unspecified whether dyskinesia Fluctuating manifestations: unspecified whether manifestations fluctuate Qualified Code(s): G20.A1 - Parkinson's disease without dyskinesia, without mention of fluctuations Assessment & Plan: Stable Plan: Continue carbidopa-levodopa F/u with Neuro Dr Gaona (6) Depression: Status: Acute Qualifiers: Depression Type: unspecified Qualified Code(s): F32.A - Depression, unspecified Assessment & Plan: Sx currently under control with sertraline, SIGECAPS negative Plan: Continue sertraline (7) Hypertension: Status: Acute Qualifiers: Hypertension type: unspecified Qualified Code(s): I10 - Essential (primary) hypertension Assessment & Plan: Blood pressure stable. On Lasix, propranolol, and spironolactone for end-stage liver disease, these are keeping blood pressure controlled. Plan: Counseled on limiting salt & red meat/pork intake Suggested substituting table salt with potassium chloride No-salt alternative On lasix, propranolol and aldactone for ESLD (8) Breast tenderness in male: Assessment & Plan: chief complaint of pain and tenderness bilateral nipple but more on the right side, making even wearing a shirt a painful experience. noted adequate chest hair, no swelling bilateral breast tissue no subaereolar breast pad, possible early gynaecomastia, likely secondary to spirolactone. On f/u visit 1 week later, the nipple tenderness is completely resolved after holding spironolactone. Plan: Tolerating spironolactone at lower dose of 25 mg daily. Has not had recurrence of breast tenderness. (9) Snoring: Status: Acute Assessment & Plan: Patient reports snoring at night & occasional feeling of dyspnea November 2022 Echo was unremarkable with LVEF 60-65%, lung sounds CTA B/L, trace edema, low suspicion for CHF at this time Plan: Pending insurance auth for sleep study for possible ?JESUS (10) Hepatic encephalopathy: Status: Resolved Assessment & Plan: History of hepatic encephalopathy Plan: Continue with rifaximin and lactulose. Additional Assessment Attending note: I, Valdemar Alcantara MD, attest that I was physically present for the cifuentes portions of the service and evaluated the patient with the resident and I reviewed and discussed the case with the resident and agree with the resident's findings and plans of care as documented above. Valdemar Alcantara MD Physician Billing Established Patient Established Patient: E/M Level 3-CPT 09766 Office Procedures [facility] Level of Care Nursing/Assessment Patient Status: Established Patient Nursing Assessment/Reassessment: Medication Reconciliation, Update PMH in EMR and Vital Signs Coordination of Care: Complex Care and Chronic Disease 1-5, Education Complex Pt/Fam, Results/Orders obtained and Staff clarify orders Established Patient Charge Established Patient Point Assignment: 90 Established Patient Point Charge: EP Level 3 (80-115)
== END 2025-01-31 11:09 | disposition home or self-care (01) ==
LOC: HODAHC 09:21
PROVIDERS: Supervising Provider Internal Medicine
DX: R42 Dizziness and giddiness (principal); G20.A1 Parkinson's disease without dyskinesia, without mention of fluctuations; I81 Portal vein thrombosis; E03.9 Hypothyroidism, unspecified; K72.10 Chronic hepatic failure without coma; F32.A Depression, unspecified; I10 Essential (primary) hypertension; N64.4 Mastodynia
CPT/HCPCS: 99213; G0463

== ENCOUNTER 2025-03-01 13:07 | Outpatient (AMB) | payer MEDICARE, MEDICAID, SELFPAY ==
[2025-03-01 13:29] VITALS: BP 136/72; PULSE 70; RESP 18; TEMP 36.8; O2SAT 95; BMI 33.6
--- NOTE | 2025-03-01 13:29 | PD.RESCLINIC ---
Vital Signs 03/01/25 13:29 Height 1.73 m Height Method Stated Weight 100.698 kg Weight Measurement Method Standing Scale BMI 33.6 BP 136/72 H Blood Pressure Source Automatic Cuff Blood Pressure Location Right Upper Arm Position Sitting Respiration 18 Pulse 70 Pulse Source Monitor Temp 98.3 F Temp Source Temporal Artery Scan Pulse Oximetry (%) 95 Oxygen Delivery Method Room Air Allergies/Meds Allergies & Medications Allergies No Known Allergies Allergy (Verified 03/01/25 13:30) Medication Reconciliation carbidopa 25 mg-levodopa 100 mg tablet 1 tab PO TID 30 days #90 tabs 08/18/23 [Rx Confirmed 03/01/25] furosemide 20 mg tablet (Lasix) 20 mg PO QDAY 30 days #30 tabs 06/24/24 [Rx Confirmed 03/01/25] lactulose 10 gram/15 mL oral solution 20 ml PO TID #946 mL 06/24/24 [Rx Confirmed 03/01/25] pantoprazole 40 mg tablet,delayed release 40 mg PO QDAY #30 tabs 06/24/24 [Rx Confirmed 03/01/25] propranolol 10 mg tablet 10 mg PO BID 30 days #60 tabs 06/24/24 [Rx Confirmed 03/01/25] rifaximin 550 mg tablet 550 mg PO BID 30 days #60 tabs 06/24/24 [Rx Confirmed 03/01/25] sertraline 50 mg tablet 50 mg PO QDAY #30 tabs 06/24/24 [Rx Confirmed 03/01/25] spironolactone 25 mg tablet 25 mg PO QDAY #30 tabs 06/24/24 [Rx Confirmed 03/01/25] levothyroxine 50 mcg capsule 50 mcg PO QDAY #30 caps 07/08/24 [Rx Confirmed 03/01/25] MA Intake Visit Data Collection New Patient or Established: Established Patient (seen at [facility] within 3 years) Seen by Clinical Staff ONLY (RN/MA): No Pain Present Currently: No PCP or OBGYN visit in last 3 months: Yes Smoking Status Smoking Status: Never smoker Immunization / Flu Flu Vaccine in the Last 12 Months: No Flu Vaccine Exclusion Criteria: No Exclusion Criteria Past Medical History Past Medical History NEUROLOGIC: Positive Parkinson's Disease CARDIAC: Positive Hypercholesterolemia; Negative Cardiac Disorders or Congestive Heart Failure RESPIRATORY: Negative Chronic Obstructive Pulmonary Disease (COPD) or Asthma GASTROINTESTINAL: Positive Cirrhosis GENITOURINARY: Negative Renal Disease ENDOCRINE: Negative Diabetes Mellitus Type 1 or Diabetes Mellitus Type 2 HEMATOLOGIC: Positive Blood Disorders; Negative Sickle Cell Disease PSYCHO/SOCIAL: Positive Depression Social History SMOKING STATUS: Smoking status: Never smoker ALCOHOL: Alcohol Intake: Never LIVES WITH: Lives With: Family Patient Portal Questionaires PHQ-9 PHQ-2 Over the last 2 weeks, how often have you been bothered by any of the following problems? 1. Little interest or pleasure in doing things: several days PHQ-9 8. Moving or speaking so slowly that other people could have noticed? - Or the opposite - being so fidgety or restless that you have been moving around a lot more than usual: not at all Source: Developed by Drs. Cal Wilhelm, Miguelina Steven, Eh Sheldon and colleagues, with an educational chrissy from [employer]. Social History Tobacco History Smoking Status: Never smoker Alcohol History Alcohol Intake: Never Review of Systems Report any current symptoms Only answer those that you have currently: Past Medical History Past Medical History Have you ever been diagnosed with any of the following: Neurological Problems Parkinson's Disease: Yes Cardiology Problems Hypercholesterolemia: Yes Congestive Heart Failure: No Respiratory Problems Chronic Obstructive Pulmonary Disease (COPD): No Asthma: No Stomache/Intestinal Problems Cirrhosis: Yes Genital/Urinary Problems Renal Disease: No Endocrine Problems Diabetes Mellitus Type 1: No Diabetes Mellitus Type 2: No Blood Problems Sickle Cell Disease: No Psychologic Problems Depression: Yes History of Present Illness HPI Narrative Dizziness for 3 months. Neurologist in [facility] sent patient to therapy which has been helping much. States the he looses balance and recently tripped, twisting right ankle. Neurologist is planning CT scan of head as workup for dizziness. Endorses good appetite, good water intake. Levothyroxin discontinued by neurologist. Takes only lactulose, Lasix, rafaximin, carbidopa-levodopa. Ankles twisted 2 weeks. Needs to use a cane to help walk, brusing improved. Will plan to do xray of hung. Continue ice, elevation, and radha wrap. Review of Systems Review of Systems Systems Reviewed: All systems reviewed, normal except as documented Objective/Exam Narrative Physical exam: Gen: Well-developed and well-nourished. Normal male pattern hair distribution HEENT: NCAT, PERRLA, EOMI, MMM, anicteric conjunctivae. CVS: normal S1 and S2. RRR. No M/R/G. Resp: CTA B/L. No rhonchi, rales, crackles or wheezing. Abd: soft, non-tender, non-distended. BS+ in all 4 quadrants. MSK: Good ROM in BUE & BLE. No edema or rash. Some swelling with faint bruising in right ankle. Neuro: CN II-XII grossly intact. Strength 4+/5 in RUE,. Alert and oriented x3. noted mild tremors in right UE. Psych: appropriate mood and affect. Assessment & Plan Diagnosis / Problem List (1) Dizziness, nonspecific: Status: Acute Assessment & Plan: Dizziness for 3 months. Neurologist in [facility] sent patient to therapy which has been helping much. States the he looses balance and recently tripped, twisting right ankle. Neurologist is planning CT scan of head as workup for dizziness. Endorses good appetite, good water intake. Levothyroxin discontinued by neurologist. Takes only lactulose, Lasix, rafaximin, carbidopa-levodopa. Ankles twisted 2 weeks. Needs to use a cane to help walk, brusing improved. Will plan to do xray of hung. Continue ice, elevation, and radha wrap. (2) Ankle abrasion: Status: Acute Orders: Orders XR ankle RT 2V 03/01/25 R42 - Dizziness and giddiness, R55 - Syncope and collapse US carotid duplex 03/01/25 Office Procedures [facility] Level of Care Nursing/Assessment Patient Status: Established Patient Nursing Assessment/Reassessment: Medication Reconciliation, Update PMH in EMR and Vital Signs Coordination of Care: Complex Care and Chronic Disease 1-5, Education Complex Pt/Fam, Lab and Imaging orders, Results/Orders obtained and Staff clarify orders Established Patient Charge Established Patient Point Assignment: 105 Established Patient Point Charge: Level 3 (80-115)
== END 2025-03-01 14:10 | disposition home or self-care (01) ==
LOC: HODAHC 13:07
PROVIDERS: Supervising Provider Internal Medicine
DX: R42 Dizziness and giddiness (principal); S90.01XA Contusion of right ankle, initial encounter; X50.1XXA Overexertion from prolonged static or awkward postures, initial encounter
CPT/HCPCS: 99213; G0463

== ENCOUNTER → 2025-03-01 | Outpatient (CLI) | payer MEDICARE, MEDICAID, SELFPAY ==
--- NOTE | 2025-03-01 14:47 | XR_ITS ---
EXAMINATION: Ankle, right 2 views. Technique: AP lateral right ankle 2 views Date and time of exam: February,, 1452 hours INDICATIONS: Twisting injury to the ankle 3 weeks ago, ankle pain. FINDINGS: No fracture or dislocation No foreign body IMPRESSION: No fracture or dislocation
== END | disposition home or self-care (01) ==
DX: S99.911A Unspecified injury of right ankle, initial encounter (principal); X50.1XXA Overexertion from prolonged static or awkward postures, initial encounter
CPT/HCPCS: 73600

== ENCOUNTER 2025-04-05 13:08 | Outpatient (AMB) | payer MEDICARE, MEDICAID, SELFPAY ==
[2025-04-05 13:17] VITALS: BP 158/82; PULSE 66; RESP 18; TEMP 36.8; O2SAT 96; BMI 34.0
--- NOTE | 2025-04-05 13:17 | PD.RESCLINIC ---
Vital Signs 04/05/25 13:17 Height 1.73 m Height Method Stated Weight 101.718 kg Weight Measurement Method Standing Scale BMI 34.0 BP 158/82 H Blood Pressure Source Automatic Cuff Blood Pressure Location Right Upper Arm Position Sitting Respiration 18 Pulse 66 Pulse Source Monitor Temp 98.3 F Temp Source Temporal Artery Scan Pulse Oximetry (%) 96 Oxygen Delivery Method Room Air Allergies/Meds Allergies & Medications Allergies No Known Allergies Allergy (Verified 04/05/25 13:18) Medication Reconciliation carbidopa 25 mg-levodopa 100 mg tablet 1 tab PO TID 30 days #90 tabs 08/18/23 [Rx Confirmed 04/05/25] furosemide 20 mg tablet (Lasix) 20 mg PO QDAY 30 days #30 tabs 06/24/24 [Rx Confirmed 04/05/25] lactulose 10 gram/15 mL oral solution 20 ml PO TID #946 mL 06/24/24 [Rx Confirmed 04/05/25] pantoprazole 40 mg tablet,delayed release 40 mg PO QDAY #30 tabs 06/24/24 [Rx Confirmed 04/05/25] propranolol 10 mg tablet 10 mg PO BID 30 days #60 tabs 06/24/24 [Rx Confirmed 04/05/25] rifaximin 550 mg tablet 550 mg PO BID 30 days #60 tabs 06/24/24 [Rx Confirmed 04/05/25] sertraline 50 mg tablet 50 mg PO QDAY #30 tabs 06/24/24 [Rx Confirmed 04/05/25] spironolactone 25 mg tablet 25 mg PO QDAY #30 tabs 06/24/24 [Rx Confirmed 04/05/25] levothyroxine 50 mcg capsule 50 mcg PO QDAY #30 caps 07/08/24 [Rx Confirmed 04/05/25] MA Intake Visit Data Collection New Patient or Established: Established Patient (seen at [facility] within 3 years) Seen by Clinical Staff ONLY (RN/MA): No Pain Present Currently: Yes Pain Location: Ankle Pain scale:: 7 Pain Scale Used: [employer] Required: No PCP or OBGYN visit in last 3 months: No Do You Feel Safe at Home: Yes Authorities Contacted: N/A Smoking Status Smoking Status: Never smoker Immunization / Flu Flu Vaccine in the Last 12 Months: No Flu Vaccine Exclusion Criteria: No Exclusion Criteria Past Medical History Past Medical History NEUROLOGIC: Positive Parkinson's Disease CARDIAC: Positive Hypercholesterolemia; Negative Cardiac Disorders or Congestive Heart Failure RESPIRATORY: Negative Chronic Obstructive Pulmonary Disease (COPD) or Asthma GASTROINTESTINAL: Positive Cirrhosis GENITOURINARY: Negative Renal Disease ENDOCRINE: Negative Diabetes Mellitus Type 1 or Diabetes Mellitus Type 2 HEMATOLOGIC: Positive Blood Disorders; Negative Sickle Cell Disease PSYCHO/SOCIAL: Positive Depression Social History SMOKING STATUS: Smoking status: Never smoker ALCOHOL: Alcohol Intake: Never LIVES WITH: Lives With: Family Patient Portal Questionaires PHQ-9 PHQ-2 Over the last 2 weeks, how often have you been bothered by any of the following problems? 1. Little interest or pleasure in doing things: several days PHQ-9 8. Moving or speaking so slowly that other people could have noticed? - Or the opposite - being so fidgety or restless that you have been moving around a lot more than usual: not at all Source: Developed by Drs. Cal Wilhelm, Miguelina Steven, Eh Sheldon and colleagues, with an educational chrissy from [employer]. Social History Tobacco History Smoking Status: Never smoker Alcohol History Alcohol Intake: Never Domestic Abuse History Do You Feel Safe at Home: Yes Review of Systems Report any current symptoms Only answer those that you have currently: Past Medical History Past Medical History Have you ever been diagnosed with any of the following: Neurological Problems Parkinson's Disease: Yes Cardiology Problems Hypercholesterolemia: Yes Congestive Heart Failure: No Respiratory Problems Chronic Obstructive Pulmonary Disease (COPD): No Asthma: No Stomache/Intestinal Problems Cirrhosis: Yes Genital/Urinary Problems Renal Disease: No Endocrine Problems Diabetes Mellitus Type 1: No Diabetes Mellitus Type 2: No Blood Problems Sickle Cell Disease: No Psychologic Problems Depression: Yes History of Present Illness HPI Narrative 03/01/2025: Dizziness for 3 months. Neurologist in [facility] sent patient to therapy which has been helping much. States the he looses balance and recently tripped, twisting right ankle. Neurologist is planning CT scan of head as workup for dizziness. Endorses good appetite, good water intake. Levothyroxin discontinued by neurologist. Takes only lactulose, Lasix, rafaximin, carbidopa-levodopa. Ankles twisted 2 weeks. Needs to use a cane to help walk, brusing improved. Will plan to do xray of hung. Continue ice, elevation, and radha wrap. 04/05/2025: Patient here for the follow up on X-ray result of his right foot. X-ray (03/01/2025) showed no fracture or dislocation. Patient still have lateral ankle pain and some difficulty in walking without cane, but steadily improving over time. Uses boots so stabilize his ankles. Ibuprofen or norco not given based on his pmh of cirrhosis. Assessment and plan discussed with my attending physician Christine Mayo Dr. (PGY-1) - Internal medicine resident Review of Systems Review of Systems Narrative Review of Systems: All 12 systems assessed and the patient denies unless otherwise stated in HPI Objective/Exam Narrative Physical exam: General: No acute distress, well nourished, AAO x3 Eye: Normal conjunctiva, no scleral icterus HENT: Normocephalic, atraumatic, hearing intact to conversation at normal volume, moist oral mucosa Neck: Supple, non-tender, no JVD, no lymphadenopathy Lungs: Non-labored respirations, symmetric chest rise, Clear to auscultate bilaterally, No wheezing, rhonchi, crackles Heart: Peripheral pulses intact bilaterally, Regular Rate and Rhythm. Abdomen: Soft, non-tender, non-distended, no palpable masses Musculoskeletal: Normal range of motion and strength, No cyanosis or edema, No visible joint swelling, Tender on lateral ankle on palpation. Skin: Skin is warm, dry, no rashes or lesions. Psychiatric: Cooperative, appropriate mood and affect, Awake and alert, not agitated Neuro: Cranial nerves II-XII grossly intact. Strength 5/5 throughout. Sensations intact to light touch. Assessment & Plan Diagnosis / Problem List (1) Ankle abrasion: Status: Acute Assessment & Plan: X-ray result negative fracture or dislocation. Continue to monitor the pain. OTC tylenol if pain persists. But advised against norco or ibuprofen given his PMH of cirrhosis. Office Procedures [facility] Level of Care Nursing/Assessment Patient Status: Established Patient Nursing Assessment/Reassessment: Medication Reconciliation, Update PMH in EMR and Vital Signs Coordination of Care: Complex Care and Chronic Disease 1-5, Complex Care/Chronic Disease 5 or more, Consent,records obtained, informed consent, Lab and Imaging orders, Results/Orders obtained and Staff clarify orders Established Patient Charge Established Patient Point Assignment: 125 Established Patient Point Charge: Level 4 (120-155)
== END 2025-04-05 14:17 | disposition home or self-care (01) ==
PROVIDERS: Supervising Provider Internal Medicine
DX: S90.511D Abrasion, right ankle, subsequent encounter (principal); K74.60 Unspecified cirrhosis of liver; X50.1XXD Overexertion from prolonged static or awkward postures, subsequent encounter
CPT/HCPCS: 99214; G0463